=== PATIENT | female | born 1970 | race Caucasian/White ===

== ENCOUNTER 2016-07-28 22:57 | Emergency (ER) | payer SELFPAY ==
[2016-07-28] MEDS ORDERED: METOCLOPRAMIDE HCL INJ/PF 10 MG/2 ML SDV IV ONE (23:18)
[2016-07-28] MEDS ORDERED: FAMOTIDINE INJ/PF 20 MG/2 ML SDV IV ONE (23:18)
--- NOTE | 2016-07-28 23:19 | ER Document Report ---
ED GI/ - General Stated Complaint: VOMITING Time seen by provider: 23:18 Mode of Arrival: Stretcher Information source: Patient TRAVEL OUTSIDE OF THE [place] IN LAST 30 DAYS: No - HPI Patient complains to provider of: Abdominal pain, Vomiting Onset: This morning Timing/Duration: Sudden Quality of pain: Achy, Cramping Severity at maximum: Moderate Severity in ED: Moderate Pain Level: 3 Location: Epigastric Associated symptoms: Nausea, Vomiting Notes: 07/28/16 23:18 Patient is a 45-year-old female presenting to the emergency room via EMS for complaints of nausea and vomiting started this morning with crampy abdominal pain in the epigastric region, he denies any fever, no sick contacts, patient is actively retching at time of my evaluation but not actually vomiting - Related Data Allergies/Adverse Reactions: morphine Allergy (Verified 07/29/16 00:57) Penicillins Allergy (Verified 07/29/16 00:57) Past Medical History - General Information source: Patient - Social History Smoking Status: Unknown if Ever Smoked Family History: Reviewed & Not Pertinent Pulmonary Medical History: Reports: Hx Bronchitis Psychiatric Medical History: Reports: Hx Anxiety Past Surgical History: Reports: Hx Section, Hx Tonsillectomy - Immunizations Hx Diphtheria, Pertussis, Tetanus Vaccination: Yes Review of Systems - Review of Systems Constitutional: No symptoms reported EENT: No symptoms reported Cardiovascular: No symptoms reported Respiratory: No symptoms reported Gastrointestinal: See HPI Genitourinary: No symptoms reported Female Genitourinary: No symptoms reported Musculoskeletal: No symptoms reported Skin: No symptoms reported Hematologic/Lymphatic: No symptoms reported Neurological/Psychological: No symptoms reported -: Yes All other systems reviewed and negative Physical Exam - Vital signs Vitals: Temp Pulse Resp BP Pulse Ox 98.4 F 71 16 114/78 98 07/28/16 23:05 07/28/16 23:05 07/28/16 23:05 07/28/16 23:05 07/28/16 23:05 Interpretation: Normal - General General appearance: Appears well, Alert - HEENT Head: Normocephalic, Atraumatic Eyes: Normal Pupils: PERRL - Respiratory Respiratory status: No respiratory distress Chest status: Nontender Breath sounds: Normal Chest palpation: Normal - Cardiovascular Rhythm: Regular Heart sounds: Normal auscultation Murmur: No - Abdominal Inspection: Normal Distension: No distension Bowel sounds: Normal Tenderness: Tender - Epigastric Organomegaly: No organomegaly - Back Back: Normal, Nontender - Extremities General upper extremity: Normal inspection, Nontender, Normal color, Normal ROM , Normal temperature General lower extremity: Normal inspection, Nontender, Normal color, Normal ROM , Normal temperature, Normal weight bearing. No: Peace's sign - Neurological Neuro grossly intact: Yes Cognition: Normal Orientation: AAOx4 [place] Coma Scale Eye Opening: Spontaneous [place] Coma Scale Verbal: Oriented [place] Coma Scale Motor: Obeys Commands [place] Coma Scale Total: 15 Speech: Normal Motor strength normal: LUE, RUE, LLE, RLE Sensory: Normal - Psychological Associated symptoms: Normal affect, Normal mood - Skin Skin Temperature: Warm Skin Moisture: Dry Skin Color: Normal Course - Re-evaluation Re-evalutation: 07/29/16 04:45 Patient is resting comfortably, no longer vomiting, reports feeling some relief of symptoms, additional IV fluids have been ordered, I have asked patient to attempt a by mouth challenge but she states she is not quite ready to yet, we will try again and a little bit and hopefully have patient ready for discharge shortly 07/29/16 06:23 I inquired with patient as to whether she's had vomiting like this before and she said yes that she's been having vomiting like this for 40 years, I then asked her she was a cyclic vomiting her and she said yes, I asked what medications usually help she said a combination of Zofran and Phenergan which is early been given, I also given Reglan and Haldol and she continues to retch, however she has not actually vomited up any food or fluid in several hours, I asked the patient whether this was the worst she's ever been and she said no this is not quite that bad, and she would prefer to go home, however would like to feel little bit better before she does, therefore I've ordered a dose of Valium to see if this helps her feel better 07/29/16 06:24 Patient recently moved to the [place] area in 07/29/16 07:18 Patient has been resting comfortably, she has not retched or vomited in quite some time now, plan to discharge with a prescription for Phenergan and information for follow-up with a local memory care provider, patient acknowledges understanding and agreement with this plan - Vital Signs Vital signs: Temp Pulse Resp BP Pulse Ox 98.4 F 71 14 127/83 H 100 07/29/16 06:45 07/28/16 23:05 07/29/16 06:00 07/29/16 06:00 07/29/16 06:00 - Laboratory Result Diagrams: 07/29/16 00:15 07/29/16 00:15 Laboratory results interpreted by me: 07/29/16 07/29/16 00:15 00:15 WBC 19.1 H Absolute Neutrophils 14.2 H Glucose 117 H Lipase 549.5 H - Diagnostic Test Radiology reviewed: Image reviewed, Reports reviewed Discharge - Discharge Clinical Impression: Marijuana use Cyclic vomiting syndrome Qualifiers: Vomiting Intractability: intractable Nausea presence: with nausea Qualified Code(s): G43.A1 - Cyclical vomiting, intractable Condition: Stable Disposition: HOME, SELF-CARE Instructions: Family Physicians / Practices, Vomiting ([facility]), Nausea or Vomiting , Nonspecific ([facility]) Additional Instructions: Follow up with your primary care provider in one to 2 days. Return to the emergency room immediately if symptoms worsen or any additional concerns. Prescriptions: Ondansetron [Zofran Odt 4 mg Tablet] 1 - 2 tab PO Q4H #30 tab.rapdis Promethazine HCl [Phenergan 25 mg Tablet] 25 - 50 mg PO ASDIR PRN #30 tablet PRN Reason:
[2016-07-28] MEDS: NORMAL SALINE 1000 ML 1,000 ML IV PRN (23:30)
[2016-07-29 00:26] LABS: ABSOLUTE BASOPHILS # (AUTO) 0.2 10^3/uL (0.0-0.2); ABSOLUTE EOSINOPHILS # (AUTO) 0.3 10^3/uL (0.0-0.6); ABSOLUTE LYMPHOCYTES (AUTO) 3.4 10^3/uL (0.5-4.7); ABSOLUTE NEUT (AUTO) 14.2 10^3/uL (1.7-8.2); BASOPHILS % (AUTO) 0.9 % (0-2); EOSINOPHILS % (AUTO) 1.7 % (0-6); HEMOGLOBIN 13.3 g/dL (12.0-15.5); HGB HCT DIFFERENCE -0.1; LYMPHOCYTES % (AUTO) 17.6 % (13-45); MEAN CORPUSCULAR HEMOGLOBIN 32.3 pg (27.0-33.4); MEAN CORPUSCULAR HGB CONC 33.3 g/dL (32.0-36.0); MEAN CORPUSCULAR VOLUME 97 fl (80-97); MONOCYTES % (AUTO) 5.4 % (3-13); RED BLOOD COUNT 4.12 10^6/uL (3.72-5.28); RED CELL DISTRIBUTION WIDTH 13.4 % (11.5-14.0); SEGMENTED NEUTROPHILS % (AUTO) 74.4 % (42-78); WHITE BLOOD COUNT 19.1 10^3/uL (4.0-10.5)
[2016-07-29 01:02] LABS: ALANINE AMINOTRANSFERASE 28 U/L (9-52); ALBUMIN 4.2 g/dL (3.5-5.0); ALKALINE PHOSPHATASE 84 U/L (38-126); ANION GAP 11 (5-19); ASPARTATE AMINO TRANSFERASE 26 U/L (14-36); BILIRUBIN,TOTAL 0.4 mg/dL (0.2-1.3); BLOOD UREA NITROGEN 13 mg/dL (7-20); CALCIUM 9.5 mg/dL (8.4-10.2); CARBON DIOXIDE 22 mmol/L (22-30); CHLORIDE 107 mmol/L (98-107); CREATININE RESULT 0.87 mg/dL (0.52-1.25); GLUCOSE 117 mg/dL (75-110); LIPASE 549.5 U/L (23-300); POTASSIUM 4.2 mmol/L (3.6-5.0); SODIUM 139.6 mmol/L (137-145); TOTAL PROTEIN 6.9 g/dL (6.3-8.2)
[2016-07-29] MEDS ORDERED: ONDANSETRON HCL INJ/PF 4 MG/2 ML SDV IV ONE (01:04)
[2016-07-29] MEDS ORDERED: NORMAL SALINE 1000 ML 1,000 ML IV PRN ×2 (01:04→03:25)
[2016-07-29] MEDS: NORMAL SALINE 1000 ML 1,000 ML IV PRN (01:26)
[2016-07-29 01:29] LABS: APPEARANCE,URINE CLEAR; BILIRUBIN,URINE NEGATIVE (NEGATIVE); GLUCOSE, URINE NEGATIVE (NEGATIVE); KETONES,URINE NEGATIVE (NEGATIVE); LEUKOCYTE ESTERASE,URINE NEGATIVE (NEGATIVE); NITRITE,URINE NEGATIVE (NEGATIVE); PROTEIN,URINE NEGATIVE (NEGATIVE); URINE SPECIFIC GRAVITY 1.012; UROBILINOGEN,URINE NEGATIVE mg/dL (<2.0)
[2016-07-29] MEDS ORDERED: PROMETHAZINE HCL 25 MG TABLET PO ONE (03:25)
[2016-07-29 03:59] LABS: URINE BARBITURATES SCREEN NEGATIVE; URINE METHADONE SCREEN NEGATIVE; URINE OPIATES LOW NEGATIVE; URINE PHENCYCLIDINE SCREEN NEGATIVE
[2016-07-29] MEDS ORDERED: HALOPERIDOL LACTATE INJ 5 MG/1 ML VIAL IM ONE (05:18)
[2016-07-29] MEDS ORDERED: DIPHENHYDRAMINE HCL 50 MG/ML VIAL IV ONE (05:18)
[2016-07-29] MEDS ORDERED: DIAZEPAM INJ 10 MG/2 ML DISP.SYRIN IV ONE (06:23)
[2016-07-29 08:12] VITALS: BP 144/82
== END 2016-07-29 08:22 | disposition home or self-care (01) ==
LOC: ER 22:57
DX: G43.A1 Cyclical vomiting, in migraine, intractable (principal); F12.90 Cannabis use, unspecified, uncomplicated; R10.9 Unspecified abdominal pain
CPT/HCPCS: 99284; 96372; 96361; 96374; 96375; 36415; 83690; 85025; 80053; 81001; 80307; 87804; 74177; J3360; J1200; J1630; J2765; J2405; J7030 ×2; S0028

== ENCOUNTER 2017-06-09 12:56 | Emergency (ER) | payer SELFPAY ==
[2017-06-09] MEDS ORDERED: LIDOCAINE 2% VISCOUS SOLN 20 ML UDCUP PO ONE (14:02)
[2017-06-09] MEDS ORDERED: AMOXICILLIN TRIHYDRATE 500 MG CAPSULE PO ONE (14:02)
[2017-06-09] MEDS ORDERED: IBUPROFEN 600 MG TABLET PO ONE (14:02)
--- NOTE | 2017-06-09 14:10 | ER Document Report ---
ED Oral Problem - General Chief Complaint: Toothache Stated Complaint: FACIAL SWELLING/PAIN Time Seen by Provider: 06/09/17 13:25 Mode of Arrival: Ambulatory Information source: Patient Notes: 46-year-old female presents to ED for dental pain. States it started about a month ago and is continually getting worse. TRAVEL OUTSIDE OF THE [place] IN LAST 30 DAYS: No - HPI Patient complains to provider of: Toothache Onset: Other - month Onset: Gradual Quality of pain: Sharp, Throbbing Severity: Moderate Pain Level: 4 Associated symptoms: Facial pain, Toothache Worsened by: Cold - Related Data Allergies/Adverse Reactions: morphine Allergy (Verified 06/09/17 12:59) Past Medical History - General Information source: Patient - Social History Smoking Status: Current Every Day Smoker Cigarette use (# per day): Yes - 1/3 ppd Chew tobacco use (# tins/day): No Smoking Education Provided: Yes - less than 1 min Frequency of alcohol use: None Drug Abuse: Marijuana Occupation: none Lives with: Family Family History: Reviewed & Not Pertinent. denies: Arthritis, CAD, COPD, CVA, DM , Hyperlipidemia, Hypertension, Malignancy, Thyroid Disfunction Patient has suicidal ideation: No Patient has homicidal ideation: No Pulmonary Medical History: Reports: Hx Bronchitis EENT Medical History: Reports: None Neurological Medical History: Reports: None Endocrine Medical History: Reports: None Renal/ Medical History: Reports: None Malignancy Medical History: Reports: None GI Medical History: Reports: None Musculoskeltal Medical History: Reports None Skin Medical History: Reports None Psychiatric Medical History: Reports: Hx Anxiety Traumatic Medical History: Reports: None Infectious Medical History: Reports: None Past Surgical History: Reports: Hx Section, Hx Oral Surgery - wisdom teeth, Hx Tonsillectomy - Immunizations Hx Diphtheria, Pertussis, Tetanus Vaccination: Yes Review of Systems - Review of Systems Constitutional: Chills EENT: Dental problem Cardiovascular: No symptoms reported Respiratory: No symptoms reported Gastrointestinal: No symptoms reported Genitourinary: No symptoms reported Female Genitourinary: No symptoms reported Musculoskeletal: No symptoms reported Skin: No symptoms reported Hematologic/Lymphatic: No symptoms reported Neurological/Psychological: No symptoms reported -: Yes All other systems reviewed and negative Physical Exam - Vital signs Vitals: Temp Pulse Resp BP Pulse Ox 98.8 F 73 20 124/79 96 06/09/17 13:11 06/09/17 13:11 06/09/17 13:11 06/09/17 13:11 06/09/17 13:11 Interpretation: Normal - General General appearance: Appears well, Alert - HEENT Head: Normocephalic, Atraumatic Eyes: Normal Pupils: PERRL Ears: Normal External canal: Normal Tympanic membrane: Normal Sinus: Normal Nasal: Normal Mouth/Lips: Caries Mucous membranes: Normal Teeth diagram: 1 - Severe gingivitis multiple dental cavities. Poor dentation, states she does not brush her teeth because it hurts too much Pharynx: Post nasal drainage Neck: Normal - Respiratory Respiratory status: No respiratory distress Chest status: Nontender Breath sounds: Normal Chest palpation: Normal - Cardiovascular Rhythm: Regular Heart sounds: Normal auscultation Murmur: No - Abdominal Inspection: Normal Distension: No distension Bowel sounds: Normal Tenderness: Nontender Organomegaly: No organomegaly - Back Back: Normal, Nontender - Extremities General upper extremity: Normal inspection, Nontender, Normal color, Normal ROM , Normal temperature General lower extremity: Normal inspection, Nontender, Normal color, Normal ROM , Normal temperature, Normal weight bearing. No: Peace's sign - Neurological Neuro grossly intact: Yes Cognition: Normal Orientation: AAOx4 [place] Coma Scale Eye Opening: Spontaneous [place] Coma Scale Verbal: Oriented [place] Coma Scale Motor: Obeys Commands [place] Coma Scale Total: 15 Speech: Normal Motor strength normal: LUE, RUE, LLE, RLE Sensory: Normal - Psychological Associated symptoms: Normal affect, Normal mood - Skin Skin Temperature: Warm Skin Moisture: Dry Skin Color: Normal Course - Re-evaluation Re-evalutation: 06/09/17 14:19 Patient treated with amoxicillin, ibuprofen, and viscous lidocaine for her dental pain. Patient was given the name and number for dental clinic instructed to follow-up with the dentist to have her mouth treated. Patient was instructed that she needs to use some kind of sensitive toothpaste and brush her teeth on a regular basis. - Vital Signs Vital signs: Temp Pulse Resp BP Pulse Ox 98.8 F 73 20 124/79 96 06/09/17 13:11 06/09/17 13:11 06/09/17 13:11 06/09/17 13:11 06/09/17 13:11 Discharge - Discharge Clinical Impression: Pain due to dental caries Condition: Stable Disposition: HOME, SELF-CARE Instructions: Family Physicians / Practices Additional Instructions: TOOTHACHE: Your pain is due to dental decay. The tooth must be repaired in order for you to feel better. You will, therefore, be referred to a dentist. We do not have dentists on the staff at [facility]. Severe swelling or drainage around a tooth usually means a dental abscess. This also requires evaluation and treatment by the dentist, but antibiotics may be prescribed while awaiting dental treatment. You should be rechecked immediately if you develop major swelling of the face, increasing pain, a lump in the jaw or gums, headache, difficulty swallowing, or fever. Amoxicillin Amoxicillin is a member of the penicillin family. It covers the germs likely to cause ear, bronchial, and urinary infections better than plain penicillin. Amoxicillin can be taken without regard to meals. Nausea after taking the medication is rare, but can occur. Diarrhea can occur, particularly in small children. Vaginal yeast infections and oral thrush in infants are also common. Contact your physician if these problems occur. Allergy to penicillins is common. If you have had an allergic reaction to any drug of the penicillin family, you should never take any other penicillin. Notify your doctor at once if you develop hives, itching, swelling, faintness, or shortness of breath. Less serious side effects can include nausea or diarrhea. FOLLOW-UP CARE: You have been referred for follow-up care to the dentists listed below. Call the dentists office for an appointment as you were instructed or within the next two days. If you experience worsening or a significant change in your symptoms, notify the physician immediately or return to the Emergency Department at any time for re-evaluation. [facility] [address] [place], [place] [phone] Closed until June 28 for [facility] [address] [place] [address] [facility] [place] [address] [facility] [address] [facility] ([facility]) [facility] [address] [place] [facility] [place] [email or web address] [address] [place] [address] Wednesday- 8:00am to 5:00 pm Will see patients from other [facility]. Charges based on income and family size and accepts Medicare, Medicaid, and Insurances Will pull molars [facility] [id number] Hours of Operation 8:00 am - 4:30 pm weekdays The following dental offices accept Medicaid: [facility] Dr. Mendiola Dr. Estrella Dr. Tang Dr. Liu Jair Carlos Lutsavage, and [facility] Dr. Ramos ([place]) Dr. Marshall ([place]) [facility] Drs. Stallworth and Lobito ([place]) Dr. Landers ([place]) [facility] Dr. Schulz ([place]) Drs. Fox and ([place]) Medicaid Care Line Prescriptions: Amoxicillin 875 mg PO BID #14 tablet Forms: Smoking Cessation Education
[2017-06-09 14:32] VITALS: BP 130/83
== END 2017-06-09 14:32 | disposition home or self-care (01) ==
LOC: ER 12:56
DX: K02.9 Dental caries, unspecified (principal); K08.89 Other specified disorders of teeth and supporting structures; R68.83 Chills (without fever); F17.210 Nicotine dependence, cigarettes, uncomplicated; Z71.6 Tobacco abuse counseling
CPT/HCPCS: 99282; J3490

== ENCOUNTER 2018-12-26 20:06 | Emergency (ER) | payer SELFPAY ==
[2018-12-26] MEDS ORDERED: HALOPERIDOL LACTATE INJ 5 MG/1 ML VIAL IM ONE (21:00)
[2018-12-26] MEDS ORDERED: NORMAL SALINE 1000 ML 1,000 ML IV ONE ×2 (21:00→22:42)
--- NOTE | 2018-12-26 21:03 | ER Document Report ---
ED GI/ - General Chief Complaint: Abdominal Pain Stated Complaint: CRAMPING,NAUSEA,HEADACHES Time Seen by Provider: 12/26/18 20:53 Notes: Patient is a 48-year-old female that comes emergency department for chief complaint of abdominal pain, multiple episodes of vomiting, and chills since yesterday. Pain is over the left side of the abdomen, worst in the left upper abdomen. She denies vaginal bleeding or discharge. She states she has vomited over 15 times. She denies hematemesis, she reports a normal bowel movement within the past day. She does report a history of cyclic vomiting syndrome, she does admit to marijuana use today and daily, she denies recreational drugs otherwise. She smokes cigarettes. Past medical history otherwise is only C- sections reportedly. TRAVEL OUTSIDE OF THE [place] IN LAST 30 DAYS: No - Related Data Allergies/Adverse Reactions: morphine Allergy (Verified 12/26/18 20:11) Penicillins Allergy (Verified 12/26/18 20:11) Past Medical History - General Information source: Patient - Social History Smoking Status: Current Every Day Smoker Smoking Education Provided: Yes - <3 min Frequency of alcohol use: None Drug Abuse: Marijuana Lives with: Family Family History: Reviewed & Not Pertinent. denies: Arthritis, CAD, COPD, CVA, DM, Hyperlipidemia, Hypertension, Malignancy, Thyroid Disfunction Pulmonary Medical History: Reports: Hx Bronchitis Renal/ Medical History: Denies: Hx Peritoneal Dialysis Psychiatric Medical History: Reports: Hx Anxiety Past Surgical History: Reports: Hx Section, Hx Oral Surgery - wisdom teeth, Hx Tonsillectomy - Immunizations Hx Diphtheria, Pertussis, Tetanus Vaccination: Yes Review of Systems - Review of Systems Constitutional: See HPI EENT: No symptoms reported Cardiovascular: No symptoms reported Respiratory: No symptoms reported Gastrointestinal: See HPI Genitourinary: See HPI Female Genitourinary: No symptoms reported Musculoskeletal: No symptoms reported Skin: No symptoms reported Hematologic/Lymphatic: No symptoms reported Neurological/Psychological: No symptoms reported Physical Exam - Vital signs Vitals: Temp Pulse Resp BP Pulse Ox 98.6 F 72 22 H 151/90 H 97 12/26/18 20:14 12/26/18 20:14 12/26/18 20:14 12/26/18 20:14 12/26/18 20:14 - Notes Notes: GENERAL: Patient is disheveled HEAD: Normocephalic, atraumatic. EYES: Pupils equal, round, and reactive to light. Extraocular movements intact. ENT: Oral mucosa very dry, tongue midline. Oropharynx unremarkable. Airway patent. NECK: Full range of motion. Supple. Trachea midline. LUNGS: Clear to auscultation bilaterally, no wheezes, rales, or rhonchi. No respiratory distress. HEART: Regular rate and rhythm. No murmur ABDOMEN: Generalized abdominal tenderness, slightly worse in the upper abdomen, no specific guarding, no rigidity, no rebound tenderness. GENITOURINARY: Deferred EXTREMITIES: Moves all 4 extremities spontaneously. No edema, normal radial and dorsalis pedis pulses bilaterally. No cyanosis. BACK: no cervical, thoracic, lumbar midline tenderness. No saddle anesthesia, normal distal neurovascular exam. Moves all extremities in full range of motion. NEUROLOGICAL: Alert and oriented x3. Normal speech. Cranial nerves II through XII grossly intact. PSYCH: Talks rapidly, slightly anxious SKIN: Warm, dry, normal turgor. No rashes or lesions noted. Course - Re-evaluation Re-evalutation: Patient has dry mucous membranes, she has generalized abdominal tenderness, she appears somewhat disheveled. She states she has been vomiting for days. Patient given IM Haldol because of history of cyclic vomiting syndrome. She does admit to cannabis use within the past day and daily use. CBC shows leukocytosis as expected with vomiting. Chemistry is generally unremarkable. Urinalysis is actually unremarkable. Troponin negative. Urine drug screen only shows cannabis. Patient is still having some nausea but not vomiting after Haldol. Given Benadryl as well. Given IV fluids. Patient reevaluated again. She appears much improved. She is tolerating p.o. She states she feels much better and that she just wants to go home and sleep. I do have a low suspicion of acute abdomen based on her evaluation, I did discuss how cannabis can cause cyclic vomiting syndrome, discussed avoidance of this. Discussed medications at home, follow-up, and return precautions. Patient states understanding and agreement. - Vital Signs Vital signs: Temp Pulse Resp BP Pulse Ox 98.0 F 85 17 133/83 H 98 12/27/18 00:04 12/27/18 00:04 12/27/18 00:04 12/27/18 00:04 12/27/18 00:04 - Laboratory Result Diagrams: 12/26/18 21:55 12/26/18 21:55 Laboratory results interpreted by me: 12/26/18 12/26/18 12/26/18 21:55 21:55 21:55 WBC 18.5 H MCV 98 H RDW 14.2 H Seg Neutrophils % 79.1 H Lymphocytes % 11.9 L Absolute Neutrophils 14.6 H Chloride 108 H Urine Urobilinogen 2.0 H Discharge - Discharge Clinical Impression: Dehydration Vomiting Qualifiers: Vomiting type: unspecified Vomiting Intractability: non-intractable Nausea presence: with nausea Qualified Code(s): R11.2 - Nausea with vomiting, unspecified Abdominal pain Qualifiers: Abdominal location: generalized Qualified Code(s): R10.84 - Generalized abdominal pain Condition: Stable Disposition: HOME, SELF-CARE Additional Instructions: You have been started on rehydration for dehydration from suspected cyclic vomiting syndrome. You have been treated for this with intramuscular and IV medications, continue nausea medicine at home if needed, I recommend the Carafate and famotidine for your inflamed upper gastrointestinal tract as well. Start with clear fluids and bland food, slowly progress. Return if you worsen including return for uncontrolled vomiting, severe worsening pain, fever, or any other concerning or worsening symptoms. Prescriptions: Famotidine [Pepcid 20 mg Tablet] 20 mg PO BID #14 tablet Promethazine HCl [Phenergan 25 mg Tablet] 25 mg PO Q6H PRN #20 tablet PRN Reason: Sucralfate [Carafate 1 gm Tablet] 1 gm PO QID #20 tablet
[2018-12-26] MEDS ORDERED: DIPHENHYDRAMINE HCL 50 MG/ML VIAL IV ONE (22:04)
[2018-12-26 22:21] LABS: ABSOLUTE BASOPHILS # (AUTO) 0.1 10^3/uL (0.0-0.2); ABSOLUTE EOSINOPHILS # (AUTO) 0.3 10^3/uL (0.0-0.6); ABSOLUTE LYMPHOCYTES (AUTO) 2.2 10^3/uL (0.5-4.7); ABSOLUTE MONOCYTES (AUTO) 1.3 10^3/uL (0.1-1.4); ABSOLUTE NEUT (AUTO) 14.6 10^3/uL (1.7-8.2); BASOPHILS % (AUTO) 0.5 % (0-2); EOSINOPHILS % (AUTO) 1.5 % (0-6); HEMATOCRIT 37.3 % (36.0-47.0); HEMOGLOBIN 12.7 g/dL (12.0-15.5); LYMPHOCYTES % (AUTO) 11.9 % (13-45); MEAN CORPUSCULAR HEMOGLOBIN 33.4 pg (27.0-33.4); MEAN CORPUSCULAR VOLUME 98 fl (80-97); PLATELET COUNT 264 10^3/uL (150-450); RED CELL DISTRIBUTION WIDTH 14.2 % (11.5-14.0); SEGMENTED NEUTROPHILS % (AUTO) 79.1 % (42-78); TOTAL CELLS COUNTED % (AUTO) 100 %; WHITE BLOOD COUNT 18.5 10^3/uL (4.0-10.5)
[2018-12-26 22:25] LABS: APPEARANCE,URINE CLEAR; BILIRUBIN,URINE NEGATIVE (NEGATIVE); COLOR,URINE STRAW; GLUCOSE, URINE NEGATIVE (NEGATIVE); KETONES,URINE NEGATIVE (NEGATIVE); LEUKOCYTE ESTERASE,URINE NEGATIVE (NEGATIVE); NITRITE,URINE NEGATIVE (NEGATIVE); PROTEIN,URINE NEGATIVE (NEGATIVE)
[2018-12-26 22:26] LABS: URINE SPECIFIC GRAVITY 1.017
[2018-12-26 22:34] LABS: ALANINE AMINOTRANSFERASE 15 U/L (9-52); ALKALINE PHOSPHATASE 88 U/L (38-126); ANION GAP 8 (5-19); ASPARTATE AMINO TRANSFERASE 20 U/L (14-36); BILIRUBIN,DIRECT 0.2 mg/dL (0.0-0.4); BILIRUBIN,TOTAL 0.2 mg/dL (0.2-1.3); BLOOD UREA NITROGEN 14 mg/dL (7-20); CALCIUM 9.3 mg/dL (8.4-10.2); CARBON DIOXIDE 25 mmol/L (22-30); CHLORIDE 108 mmol/L (98-107); GLUCOSE 100 mg/dL (75-110); LIPASE 97.4 U/L (23-300); POTASSIUM 3.7 mmol/L (3.6-5.0); SODIUM 140.8 mmol/L (137-145); TOTAL PROTEIN 6.5 g/dL (6.3-8.2)
[2018-12-26 22:41] LABS: URINE AMPHETAMINES SCREEN NEGATIVE; URINE BARBITURATES SCREEN NEGATIVE; URINE BENZODIAZEPINES SCREEN NEGATIVE; URINE COCAINE SCREEN NEGATIVE; URINE MARIJUANA (THC) SCREEN UNCONFIRMED POSITIVE; URINE METHADONE SCREEN NEGATIVE; URINE PHENCYCLIDINE SCREEN NEGATIVE
[2018-12-26] MEDS ORDERED: HYDROCODONE/ACETAMINOPHEN 5-325 MG (6 TAB/ER DISP) PO PRN (23:18)
[2018-12-26] MEDS ORDERED: ONDANSETRON ODT 4 MG TAB (6 TAB/ER DISP) PO PRN (23:18)
[2018-12-27 00:05] VITALS: BP 133/83
--- NOTE | 2018-12-27 11:24 | EKG REPORT ---
SEVERITY:- ABNORMAL ECG - SINUS RHYTHM ABNRM R PROG, CONSIDER ASMI OR LEAD PLACEMENT : Confirmed by: Candie Erickson MD 27-Dec-2018 11:22:43
== END 2018-12-27 00:05 | disposition home or self-care (01) ==
LOC: ER 20:06
DX: R11.2 Nausea with vomiting, unspecified (principal); R10.84 Generalized abdominal pain; R10.817 Generalized abdominal tenderness; E86.0 Dehydration; R68.83 Chills (without fever); F12.10 Cannabis abuse, uncomplicated; F17.210 Nicotine dependence, cigarettes, uncomplicated; Z88.5 Allergy status to narcotic agent; Z88.0 Allergy status to penicillin; D72.829 Elevated white blood cell count, unspecified; Z86.69 Personal history of other diseases of the nervous system and sense organs
CPT/HCPCS: 93005; 99284; 96372; 96361; 96374; 36415; 83690; 84703; 85025; 80053; 81001; 84484; 80307; 93010; J1200; J1630; J7030

== ENCOUNTER 2019-04-13 11:25 | Emergency (ER) | payer SELFPAY ==
--- NOTE | 2019-04-13 12:03 | ER Document Report ---
ED Medical Screen (RME) - General Chief Complaint: Chest Pain Stated Complaint: HEART PALPITATIONS Time Seen by Provider: 04/13/19 11:56 Mode of Arrival: Wheelchair Information source: Patient Notes: Patient is an otherwise healthy 40-year-old female presenting to the emergency department chief complaint of shortness of breath and heart palpitations. Patient reports heart palpitations have been going on for 4 years but getting worse over the last few months. Patient denies seeing a barrel straightener, denies any history of thyroid issues. Patient denies any chest pain. She reports nausea but states that she has a history of cyclic vomiting syndrome. Lung sounds are clear and equal bilaterally. I have greeted and performed a rapid initial assessment of this patient. A comprehensive ED assessment and evaluation of the patient, analysis of test results and completion of the medical decision making process will be conducted by additional ED providers. I have specifically instructed the patient or family members with the patient to immediately return to any nursing staff should anything change in the patient's condition or with their chief complaint. This medical record was dictated with voice recognizing software. There may be grammatical, syntax errors that are unintended. TRAVEL OUTSIDE OF THE [place] IN LAST 30 DAYS: No - Related Data Allergies/Adverse Reactions: morphine Allergy (Verified 04/13/19 11:51) Penicillins Allergy (Verified 04/13/19 11:51) Past Medical History - Social History Chew tobacco use (# tins/day): No Frequency of alcohol use: None Drug Abuse: Marijuana Pulmonary Medical History: Reports: Hx Bronchitis Renal/ Medical History: Denies: Hx Peritoneal Dialysis Psychiatric Medical History: Reports: Hx Anxiety Past Surgical History: Reports: Hx Section, Hx Oral Surgery - wisdom teeth, Hx Tonsillectomy - Immunizations Hx Diphtheria, Pertussis, Tetanus Vaccination: Yes Physical Exam - Vital signs Vitals: Temp Pulse Resp BP Pulse Ox 97.5 F 72 18 112/64 100 04/13/19 11:38 04/13/19 11:38 04/13/19 11:38 04/13/19 11:38 04/13/19 11:38 Course - Vital Signs Vital signs: Temp Pulse Resp BP Pulse Ox 97.5 F 72 18 112/64 100 04/13/19 11:38 04/13/19 11:38 04/13/19 11:38 04/13/19 11:38 04/13/19 11:38
[2019-04-13 12:40] LABS: ABSOLUTE BASOPHILS # (AUTO) 0.1 10^3/uL (0.0-0.2); ABSOLUTE EOSINOPHILS # (AUTO) 0.3 10^3/uL (0.0-0.6); ABSOLUTE LYMPHOCYTES (AUTO) 3.7 10^3/uL (0.5-4.7); ABSOLUTE MONOCYTES (AUTO) 0.7 10^3/uL (0.1-1.4); ABSOLUTE NEUT (AUTO) 4.6 10^3/uL (1.7-8.2); BASOPHILS % (AUTO) 1.1 % (0-2); EOSINOPHILS % (AUTO) 2.7 % (0-6); HEMATOCRIT 45.2 % (36.0-47.0); HEMOGLOBIN 15.3 g/dL (12.0-15.5); LYMPHOCYTES % (AUTO) 39.2 % (13-45); MEAN CORPUSCULAR HEMOGLOBIN 32.9 pg (27.0-33.4); MEAN CORPUSCULAR VOLUME 97 fl (80-97); MONOCYTES % (AUTO) 7.3 % (3-13); PLATELET COUNT 312 10^3/uL (150-450); RED BLOOD COUNT 4.66 10^6/uL (3.72-5.28); RED CELL DISTRIBUTION WIDTH 13.6 % (11.5-14.0); SEGMENTED NEUTROPHILS % (AUTO) 49.7 % (42-78); TOTAL CELLS COUNTED % (AUTO) 100 %; WHITE BLOOD COUNT 9.4 10^3/uL (4.0-10.5)
--- NOTE | 2019-04-13 12:50 | RADIOLOGY REPORT (SQ) ---
EXAM DESCRIPTION: CHEST 2 VIEWS COMPLETED DATE/TIME: 04/13/2019 12:33 pm REASON FOR STUDY: palpitations/shortness of breath COMPARISON: None. EXAM PARAMETERS: NUMBER OF VIEWS: two views TECHNIQUE: Digital Frontal and Lateral radiographic views of the chest acquired. RADIATION DOSE: NA LIMITATIONS: none FINDINGS: LUNGS AND PLEURA: Pruning of the vasculature in the upper zones and increased AP diameter on the lateral view; these findings are suggestive of COPD. There is no superimposed consolidation, pleural effusion or pneumothorax. MEDIASTINUM AND HILAR STRUCTURES: No mediastinal or hilar contour abnormality. HEART AND VASCULAR STRUCTURES: No cardiomegaly. BONES: No acute findings. HARDWARE: None. OTHER: No other finding. IMPRESSION: Findings of COPD without a superimposed acute cardiopulmonary process. TECHNICAL DOCUMENTATION: JOB ID: [id number] [employer]- All Rights Reserved Reading location - IP/workstation name: [email or web address]
[2019-04-13 13:00] LABS: ALBUMIN 4.5 g/dL (3.5-5.0); ALKALINE PHOSPHATASE 87 U/L (38-126); ANION GAP 11 (5-19); ASPARTATE AMINO TRANSFERASE 26 U/L (14-36); BILIRUBIN,DIRECT 0.2 mg/dL (0.0-0.4); BILIRUBIN,TOTAL 0.3 mg/dL (0.2-1.3); BLOOD UREA NITROGEN 20 mg/dL (7-20); CALCIUM 10.1 mg/dL (8.4-10.2); CARBON DIOXIDE 27 mmol/L (22-30); CHLORIDE 104 mmol/L (98-107); GLUCOSE 81 mg/dL (75-110); POTASSIUM 4.4 mmol/L (3.6-5.0); TOTAL PROTEIN 7.7 g/dL (6.3-8.2)
--- NOTE | 2019-04-13 15:33 | ER Document Report ---
ED General - General Chief Complaint: Palpitations Stated Complaint: HEART PALPITATIONS Time Seen by Provider: 04/13/19 11:56 Primary Care Provider: LOLLY JAIME DO [NO LOCAL MD] - Follow up in 3-5 days (primary care. ) Mode of Arrival: Wheelchair Notes: Patient is a 48-year-old female with history of cyclic vomiting syndrome that presents to the emergency department for chief complaint of palpitations and shortness of breath. Patient states that she had episode of cyclic vomiting over the weekend, she states she typically takes Zofran and Phenergan, but was feeling more palpitations today she is worried that the medication she takes for this cyclic vomiting have been causing issues for her over the many years she is been taking them so she decided come to the emergency department. She has had some chest tightness associated with this, she thinks she may have asthma as well, but does not have an inhaler or any medications for it. She is rather anxious, states she does not have a primary care physician to follow-up on these issues. She does smoke cigarettes on a daily basis. Past Medical History: Cyclic vomiting syndrome, peptic ulcer disease, asthma Past Surgical History: Social History: Admits to smoking cigarettes, denies alcohol or drug use. Family History: Reviewed and noncontributory for presenting illness Allergies: Reviewed, see documented allergy list. REVIEW OF SYSTEMS: Other than noted above, the 12 point review of systems was reviewed with the patient and were negative, all pertinent findings are included in the HPI. PHYSICAL EXAMINATION: Vital signs reviewed, nursing noted reviewed. GENERAL: Patient appears mildly anxious, but in no acute or immediate distress. HEAD: Atraumatic, normocephalic. EYES: Eyes appear normal, extraocular movements intact, sclera anicteric, conjunctiva are normal. ENT: nares patent, oropharynx clear without exudates. Moist mucous membranes. NECK: Normal range of motion, supple without lymphadenopathy LUNGS: Slight expiratory wheezing noted throughout all lung orozco. No acute respiratory distress HEART: Regular rate and rhythm without murmurs ABDOMEN: Soft, nontender, normoactive bowel sounds. No rebound, guarding, or rigidity. No masses appreciated. EXTREMITIES: Nontender, good range of motion, no pitting or edema. NEUROLOGICAL: No focal neurological deficits. Moves all extremities spontaneously Motor and sensory grossly intact on exam. PSYCH: Flat affect, appears anxious, but otherwise answers questions appropriately. SKIN: Warm, Dry, normal turgor, no rashes or lesions noted on exposed skin TRAVEL OUTSIDE OF THE [place] IN LAST 30 DAYS: No - Related Data Allergies/Adverse Reactions: morphine Allergy (Verified 04/13/19 11:51) Penicillins Allergy (Verified 04/13/19 11:51) Past Medical History - General Information source: Patient - Social History Smoking Status: Current Some Day Smoker Chew tobacco use (# tins/day): No Frequency of alcohol use: None Drug Abuse: Marijuana Family History: Reviewed & Not Pertinent. denies: Arthritis, CAD, COPD, CVA, DM, Hyperlipidemia, Hypertension, Malignancy, Thyroid Disfunction Patient has suicidal ideation: No Patient has homicidal ideation: No Pulmonary Medical History: Reports: Hx Bronchitis Renal/ Medical History: Denies: Hx Peritoneal Dialysis Psychiatric Medical History: Reports: Hx Anxiety Past Surgical History: Reports: Hx Section, Hx Oral Surgery - wisdom teeth, Hx Tonsillectomy - Immunizations Hx Diphtheria, Pertussis, Tetanus Vaccination: Yes Physical Exam - Vital signs Vitals: Temp Pulse Resp BP Pulse Ox 97.5 F 72 18 112/64 100 04/13/19 11:38 04/13/19 11:38 04/13/19 11:38 04/13/19 11:38 04/13/19 11:38 Course - Re-evaluation Re-evalutation: Patient seen and examined vital signs reviewed. Laboratory data and/or imaging were ordered as appropriate for the patient's presenting symptoms and complaint, with consideration of any critical or life threatening conditions that may be associated with their obtained history and exam as noted above. Patient was treated with IV fluids, and given a DuoNeb breathing treatment Results were reviewed when available and demonstrated unremarkable work-up, negative troponin, EKG was normal, no evidence of ischemia, chest x-ray negative as well other than signs of chronic lung changes, which may reflect COPD given patient's history of smoking. The patient was re-evaluated and was improved particularly after getting a breathing treatment, she states that she was feeling much better and her shortness of breath was resolved. Evaluation was most consistent with shortness of breath, likely related to bronchospasm, patient given albuterol inhaler, and advised follow-up with a primary care she is given a list to follow-up with. Results were discussed with the patient at this point, after careful consideration I feel that that patient can be discharged from the emergency department, the patient was educated treatments and reasons to return to the emergency department based on their presumed diagnosis as noted above, they were advised to followup with a primary care physician in 2-3 days. Patient was agreeable to plan of care. *Note is created using voice recognition software and may contain spelling, syntax or grammatical errors. Laboratory 04/13/19 04/13/19 04/13/19 12:11 12:11 12:11 WBC 9.4 RBC 4.66 Hgb 15.3 Hct 45.2 MCV 97 MCH 32.9 MCHC 34.0 RDW 13.6 Plt Count 312 Lymph % (Auto) 39.2 Kendall % (Auto) 7.3 Eos % (Auto) 2.7 Baso % (Auto) 1.1 Absolute Neuts (auto) 4.6 Absolute Lymphs (auto) 3.7 Absolute Monos (auto) 0.7 Absolute Eos (auto) 0.3 Absolute Basos (auto) 0.1 Seg Neutrophils % 49.7 Sodium 142.1 Potassium 4.4 Chloride 104 Carbon Dioxide 27 Anion Gap 11 BUN 20 Creatinine 0.86 Est GFR ( Amer) > 60 Est GFR (MDRD) Non-Af > 60 Glucose 81 Calcium 10.1 Total Bilirubin 0.3 Direct Bilirubin 0.2 Neonat Total Bilirubin Not Reportable Neonat Direct Bilirubin Not Reportable Neonat Indirect Bili Not Reportable AST 26 ALT 17 Alkaline Phosphatase 87 Troponin I Total Protein 7.7 Albumin 4.5 TSH 0.50 Free T4 04/13/19 04/13/19 12:11 12:11 WBC RBC Hgb Hct MCV MCH MCHC RDW Plt Count Lymph % (Auto) Kendall % (Auto) Eos % (Auto) Baso % (Auto) Absolute Neuts (auto) Absolute Lymphs (auto) Absolute Monos (auto) Absolute Eos (auto) Absolute Basos (auto) Seg Neutrophils % Sodium Potassium Chloride Carbon Dioxide Anion Gap BUN Creatinine Est GFR ( Amer) Est GFR (MDRD) Non-Af Glucose Calcium Total Bilirubin Direct Bilirubin Neonat Total Bilirubin Neonat Direct Bilirubin Neonat Indirect Bili AST ALT Alkaline Phosphatase Troponin I 0.028 Total Protein Albumin TSH Free T4 1.39 Chest X-Ray 04/13/19 12:00 IMPRESSION: Findings of COPD without a superimposed acute cardiopulmonary process. - Vital Signs Vital signs: Temp Pulse Resp BP Pulse Ox 97.8 F 75 16 100/67 100 04/13/19 18:10 04/13/19 18:10 04/13/19 18:10 04/13/19 18:10 04/13/19 18:10 - Laboratory Result Diagrams: 04/13/19 12:11 04/13/19 12:11 - EKG Interpretation by Me Additional EKG results interpreted by me: EKG demonstrates sinus rhythm with a ventricular rate of 74 bpm, normal axis, normal intervals, no evidence of acute ischemia on this EKG. Discharge - Discharge Clinical Impression: Palpitations Condition: Stable Disposition: HOME, SELF-CARE Instructions: Asthma (OM), Palpitations (Irregular or Rapid Heartrate) (OM) Prescriptions: Albuterol Sulfate [Ventolin 0.083% Neb 2.5 mg/3 mL Ampul] 1 vial NEB Q4 PRN #100 vial PRN Reason: wheezing/shortness of breath Referrals: LOLLY JAIME DO [NO LOCAL MD] - Follow up in 3-5 days (primary care. )
[2019-04-13] MEDS ORDERED: IPRATROPIUM/ALBUTEROL 0.5-2.5 MG/3 ML AMPUL NEB ONE (16:01)
[2019-04-13] MEDS ORDERED: ALBUTEROL SULFATE HFA (90 MCG/PUFF) 8 GM MDI (1 MDI/ER DISP) IH ONE (18:00)
[2019-04-13 18:14] VITALS: BP 100/67
--- NOTE | 2019-04-13 20:18 | EKG REPORT ---
SEVERITY:- NORMAL ECG - SINUS RHYTHM : Confirmed by: Candie Erickson MD 13-Apr-2019 20:17:03
== END 2019-04-13 18:14 | disposition home or self-care (01) ==
LOC: ER 11:25
DX: R00.2 Palpitations (principal); J44.9 Chronic obstructive pulmonary disease, unspecified; R06.02 Shortness of breath; R11.15 Cyclical vomiting syndrome unrelated to migraine; Z79.899 Other long term (current) drug therapy; R07.89 Other chest pain; F17.210 Nicotine dependence, cigarettes, uncomplicated; F12.10 Cannabis abuse, uncomplicated; Z88.5 Allergy status to narcotic agent; Z88.0 Allergy status to penicillin
CPT/HCPCS: 93005; 36415; 84439; 84443; 85025; 80053; 84484; 71046; 93010; J3490; J7620

== ENCOUNTER 2019-06-09 00:25 | Emergency (ER) | payer SELFPAY ==
[2019-06-09 02:13] LABS: ABSOLUTE BASOPHILS # (AUTO) 0.1 10^3/uL (0.0-0.2); ABSOLUTE EOSINOPHILS # (AUTO) 0.2 10^3/uL (0.0-0.6); ABSOLUTE LYMPHOCYTES (AUTO) 1.6 10^3/uL (0.5-4.7); ABSOLUTE MONOCYTES (AUTO) 0.9 10^3/uL (0.1-1.4); ABSOLUTE NEUT (AUTO) 9.7 10^3/uL (1.7-8.2); BASOPHILS % (AUTO) 0.6 % (0-2); EOSINOPHILS % (AUTO) 1.8 % (0-6); HEMATOCRIT 36.6 % (36.0-47.0); HEMOGLOBIN 12.5 g/dL (12.0-15.5); LYMPHOCYTES % (AUTO) 12.8 % (13-45); MEAN CORPUSCULAR HEMOGLOBIN 32.7 pg (27.0-33.4); MEAN CORPUSCULAR HGB CONC 34.3 g/dL (32.0-36.0); MEAN CORPUSCULAR VOLUME 95 fl (80-97); MONOCYTES % (AUTO) 7.4 % (3-13); PLATELET COUNT 349 10^3/uL (150-450); RED BLOOD COUNT 3.84 10^6/uL (3.72-5.28); RED CELL DISTRIBUTION WIDTH 12.9 % (11.5-14.0); SEGMENTED NEUTROPHILS % (AUTO) 77.4 % (42-78); TOTAL CELLS COUNTED % (AUTO) 100 %; WHITE BLOOD COUNT 12.6 10^3/uL (4.0-10.5)
[2019-06-09 02:17] LABS: APPEARANCE,URINE SLIGHTLY-CLOUDY; BILIRUBIN,URINE NEGATIVE (NEGATIVE); COLOR,URINE YELLOW; GLUCOSE, URINE NEGATIVE (NEGATIVE); KETONES,URINE NEGATIVE (NEGATIVE); LEUKOCYTE ESTERASE,URINE NEGATIVE (NEGATIVE); NITRITE,URINE NEGATIVE (NEGATIVE); PROTEIN,URINE NEGATIVE (NEGATIVE); URINE SPECIFIC GRAVITY 1.019; UROBILINOGEN,URINE NEGATIVE mg/dL (<2.0)
[2019-06-09 02:28] LABS: ALKALINE PHOSPHATASE 85 U/L (38-126); ANION GAP 8 (5-19); ASPARTATE AMINO TRANSFERASE 17 U/L (14-36); BILIRUBIN,DIRECT 0.1 mg/dL (0.0-0.4); BILIRUBIN,TOTAL 0.2 mg/dL (0.2-1.3); BLOOD UREA NITROGEN 10 mg/dL (7-20); CALCIUM 7.6 mg/dL (8.4-10.2); CARBON DIOXIDE 20 mmol/L (22-30); CHLORIDE 113 mmol/L (98-107); GLUCOSE 94 mg/dL (75-110); POTASSIUM 3.4 mmol/L (3.6-5.0); TOTAL PROTEIN 6.1 g/dL (6.3-8.2)
[2019-06-09] MEDS ORDERED: FENTANYL CITRATE INJ/PF 100 MCG/2 ML AMPUL IV ONE ×2 (06:08→08:13)
[2019-06-09] MEDS ORDERED: ONDANSETRON HCL INJ/PF 4 MG/2 ML SDV IV ONE (06:08)
[2019-06-09] MEDS ORDERED: NORMAL SALINE 1000 ML 1,000 ML IV ONE (06:09)
--- NOTE | 2019-06-09 07:24 | ER Document Report ---
ED General - General TRAVEL OUTSIDE OF THE [place] IN LAST 30 DAYS: No <SARAH WILLIAMSON - Last Filed: 06/09/19 08:44> <PATTI CHANG - Last Filed: 06/09/19 09:04> - General Chief Complaint: Flank Pain Stated Complaint: LEFT SIDED FLANK PAIN Time Seen by Provider: 06/09/19 06:05 Primary Care Provider: BOLA WHEAT MD [ACTIVE STAFF] - Follow up in 3-5 days JANICE BROWN MD [ACTIVE STAFF] - Follow up in 3-5 days Notes: 48-year-old female presents with left flank pain that started over 24 hours ago with associated nausea/vomiting. Patient states that movement makes the pain worse and nothing really makes the pain better. Patient has associated goins bjective fevers. Patient was given Toradol and Zofran by EMS which slightly relieved her pain and nausea. Patient denies any history of kidney stones. Patient denies any associated chills, diarrhea, constipation, abdominal pain, chest pain, shortness of breath, or urinary symptoms. (SARAH WILLIAMSON) - Related Data Allergies/Adverse Reactions: morphine Allergy (Verified 04/13/19 11:51) Penicillins Allergy (Verified 04/13/19 11:51) Past Medical History - Social History Smoking Status: Current Every Day Smoker Frequency of alcohol use: None Drug Abuse: None Family History: Reviewed & Not Pertinent. denies: Arthritis, CAD, COPD, CVA, DM, Hyperlipidemia, Hypertension, Malignancy, Thyroid Disfunction Patient has suicidal ideation: No Patient has homicidal ideation: No Pulmonary Medical History: Reports: Hx Bronchitis Renal/ Medical History: Denies: Hx Peritoneal Dialysis Psychiatric Medical History: Reports: Hx Anxiety Past Surgical History: Reports: Hx Section, Hx Oral Surgery - wisdom teeth, Hx Tonsillectomy - Immunizations Hx Diphtheria, Pertussis, Tetanus Vaccination: Yes <SARAH WILLIAMSON - Last Filed: 06/09/19 08:44> Review of Systems <SARAH WILLIAMSON - Last Filed: 06/09/19 08:44> - Review of Systems Notes: Constitutional: Negative for fever. HENT: Negative for sore throat. Eyes: Negative for visual changes. Cardiovascular: Negative for chest pain. Respiratory: Negative for shortness of breath. Gastrointestinal: Positive for flank pain and nausea and vomiting. Negative for abdominal pain or diarrhea. Genitourinary: Negative for dysuria. Musculoskeletal: Negative for back pain. Skin: Negative for rash. Neurological: Negative for headaches, weakness or numbness. 10 point ROS negative except as marked above and in HPI. (SARAH WILLIAMSON) Physical Exam <SARAH WILLIAMSON - Last Filed: 06/09/19 08:44> - Vital signs Vitals: Temp Pulse Resp BP Pulse Ox 98.9 F 90 20 102/59 L 96 06/09/19 00:42 06/09/19 00:42 06/09/19 00:42 06/09/19 00:42 06/09/19 00:42 - Notes Notes: GENERAL: Well-appearing, well-nourished and uncomfortable, tearful. HEAD: Atraumatic, normocephalic. EYES: Extraocular movements intact, sclera anicteric, conjunctiva are normal. NECK: Normal range of motion, supple without lymphadenopathy or JVD. LUNGS: Breath sounds clear to auscultation bilaterally and equal. No wheezes rales or rhonchi. HEART: Regular rate and rhythm without murmurs, rubs or gallops. ABDOMEN: Soft, nontender, left CVA tenderness. No guarding, no rebound. No masses appreciated. EXTREMITIES: Normal range of motion, no pitting or edema. No clubbing or cyanosis. NEUROLOGICAL: Cranial nerves II through XII grossly intact. Normal speech, normal gait. PSYCH: Normal mood, normal affect. SKIN: Warm, Dry, normal turgor, no rashes or lesions noted. (SARAH WILLIAMSON) Course - Laboratory Result Diagrams: 06/09/19 01:50 06/09/19 01:50 <SARAH WILLIAMSON - Last Filed: 06/09/19 08:44> - Laboratory Result Diagrams: 06/09/19 01:50 06/09/19 01:50 <PATTI CHANG - Last Filed: 06/09/19 09:04> - Re-evaluation Re-evalutation: 06/09/19 48-year-old female presents with left flank pain with nausea/vomiting. No associated urinary symptoms. Patient is uncomfortable/tearful. Patient's abdomen exam is soft nontender. Patient does have left CVA tenderness. No history of kidney stones. Lab work is significant for mildly elevated white blood count at 12.6, potassium of 3.4, and lipase of 708 however there is no epigastric pain. Urine is completely negative. CT abdomen/pelvis with IV contrast ordered. 06/09/19 07:58 CT abdomen shows multifocal pneumonia vs cancer. Discussed with Dr. Muniz, attending, who recommended admission with IV antibiotics. Discussed these results with pt. Also gave pt a copy of the report. 06/09/19 08:25 Discussed with [employer]PUTY DIRECTOR Giovanna who will come down to see pt for consultation (d/c vs admission). Discussed this with pt who states she would rather go home. However pt continues to appear uncomfortable and O2 sats are 92- 93%. Fentanyl ordered. RN also states pt is unable to ambulate due to discomfort. 06/09/19 08:44 (SARAH WILLIAMSON) 06/09/19 09:03 Hospitalist Giovanna Jamison, [facility], came and evaluated patient. They feel that the patient is stable for discharge home and trial on p.o. antibiotics. (PATTI CHANG) - Vital Signs Vital signs: Temp Pulse Resp BP Pulse Ox 99.8 F 102 H 18 131/84 H 92 06/09/19 07:54 06/09/19 07:54 06/09/19 07:54 06/09/19 07:54 06/09/19 07:54 - Laboratory Laboratory results interpreted by me: 06/09/19 06/09/19 01:50 01:50 WBC 12.6 H Lymph % (Auto) 12.8 L Absolute Neuts (auto) 9.7 H Potassium 3.4 L Chloride 113 H Carbon Dioxide 20 L Calcium 7.6 L Total Protein 6.1 L Albumin 3.0 L Lipase 708.5 H Discharge <SARAH WILLIAMSON - Last Filed: 06/09/19 08:44> <PATTI CHANG - Last Filed: 06/09/19 09:04> - Discharge Clinical Impression: Multifocal pneumonia Condition: Stable Disposition: HOME, SELF-CARE Additional Instructions: Your CT scan shows a possible multifocal pneumonia versus cancer. Please take antibiotics as prescribed and finish all doses even if you feel better. Please follow-up with oncologist Dr. Wheat in 3 to 5 days. Please follow-up with your primary care doctor or PCP listed in 3 to 5 days. Return to ER for any wo rsening symptoms, including shortness of breath, increasing pain, coughing up blood, chest pain, fever, or any other symptoms that are concerning to you. Prescriptions: Doxycycline Hyclate 100 mg PO BID #14 capsule Albuterol Sulfate [Ventolin 0.083% Neb 2.5 mg/3 mL Ampul] 1 vial NEB Q4 #30 vial Azithromycin [Zithromax 250 mg Tablet] 250 mg PO ASDIR PRN #6 tablet PRN Reason: Forms: Return to Work Referrals: BOLA WHEAT MD [ACTIVE STAFF] - Follow up in 3-5 days JANICE BROWN MD [ACTIVE STAFF] - Follow up in 3-5 days
--- NOTE | 2019-06-09 07:46 | RADIOLOGY REPORT (SQ) ---
EXAM DESCRIPTION: CT ABDOMEN PELVIS WITH IV CONTRAST COMPLETED DATE/TME: 06/09/2019 06:07 CLINICAL HISTORY: 48 years, Female, left flank pain, n/v. HCG NEG COMPARISON: 07/29/2016 TECHNIQUE: Axial CT images images of the abdomen and pelvis were obtained after the administration of IV contrast. Sagittal and coronal reformats were performed. DLP 685 Images stored on PACS. All CT scanners at this facility use dose modulation, iterative reconstruction, and/or weight based dosing when appropriate to reduce radiation dose to as low as reasonably achievable (ALARA). [facility]: Dose Right [facility]: CareDose [facility]: Dose Right [facility]: Teradose 4D [facility]: [employer] LIMITATIONS: None. FINDINGS: There is a 1.2 cm peripheral airspace opacity along the left upper lobe. There is a 9 mm rounded consolidation within the left lower lobe adjacent to the major fissure. There is a 3.1 x 2.3 cm consolidation with central necrosis involving the base of the left lower lobe. There is centrilobular emphysema. The liver, gallbladder, pancreas, spleen, and adrenal glands are unremarkable. Both kidneys enhance normally. There is no hydronephrosis. There is no intraperitoneal free air or fluid. There is no lymphadenopathy. The stomach and small bowel, and appendix appear unremarkable. There is a moderate amount of stool within the colon. The uterus, adnexa, and urinary bladder unremarkable. No lytic or blastic bone lesion. IMPRESSION: Multifocal rounded consolidations within the left lung with the largest one in the left lower lobe demonstrating central necrosis. This may be due to multifocal and necrotizing pneumonia or possibly metastatic disease. Recommend follow-up CT scan in three months to assess for stability. No acute findings within the abdomen or pelvis. TECHNICAL DOCUMENTATION: Quality ID # [id number]: Final reports with documentation of one or more dose reduction techniques (e.g., Automated exposure control, adjustment of the mA and/or kV according to patient size, use of iterative reconstruction technique) copyright 2011 [facility]- All Rights Reserved
[2019-06-09] MEDS ORDERED: CEFTRIAXONE INJ 1000 MG VIAL IV ONE (07:56)
[2019-06-09] MEDS ORDERED: AZITHROMYCIN INJ 500 MG VIAL IV ONE (07:56)
[2019-06-09] MEDS ORDERED: ACETAMINOPHEN 325 MG TABLET PO ONE (08:14)
--- NOTE | 2019-06-09 09:18 | PDOC CONSULTATION ---
Consultation Consult Date: 06/09/19 Provider Consulted: JESSENIA GUY History of Present Illness Patient complains of: Left flank pain History of Present Illness: CELSO DAY is a 48 year old female with a past medical history of chronic bronchitis, tobacco dependence with continuous use, and marijuana use who presented to the emergency department today with a complaint of 2 days of sudden onset left flank pain, subjective fevers, malaise, and nausea. Evaluation in the emergency department revealed stable vital signs; heart rate 102, blood pressure 131/84, respirations 18, 92 to 96% on room air, with a low- grade temp of 99.8. Laboratory evaluation showed mild leukocytosis of 12.6, unremarkable chemistry other than a lipase of 708, normal urinalysis, and CT of the abdomen and pelvis which fortunately captured the majority of the patient's lung orozco demonstrating a left-sided multifocal pneumonia. Of note, the patient's gallbladder, pancreas, spleen, liver, and kidneys were unremarkable. The hospitalist service was consulted for evaluation prior to patient's discharge. Upon assessment of the patient, she had just received fentanyl and so was slightly drowsy and briefly required supplemental oxygen to maintain saturations but had returned to room air prior to the end of our discussion. Patient reports multiple life stressors, but otherwise has been in her normal state of health until just 2 days ago. Discussed the patient's images and recommendations that she completed course of antibiotic therapy and then follow- up with hematology/oncology for further evaluation to determine whether or not work-up for underlying malignancy remains warranted. Patient was satisfied with my recommendations and desires to be discharged home. She is advised to discontinue smoking, continue using her nebulizer for management of symptoms, complete full course of antibiotics, and to return to the emergency department for any new or worsening symptoms. Past Medical History Cardiac Medical History: Reports: None Pulmonary Medical History: Reports: Bronchitis EENT Medical History: Reports: None Neurological Medical History: Reports: None Endocrine Medical History: Reports: None Renal/ Medical History: Reports: None Malignancy Medical History: Reports: None GI Medical History: Reports: None Musculoskeltal Medical History: Reports: None Skin Medical History: Reports: None Psychiatric Medical History: Reports: Substance Abuse, Tobacco Dependency Traumatic Medical History: Reports: None Hematology: Reports: None Infectious Medical History: Reports: None Past Surgical History Past Surgical History: Reports: Section, Tonsillectomy Social History Information Source: Patient Smoking Status: Current Every Day Smoker Cigarettes Packs Per Day: 0.5 Frequency of Alcohol Use: None Hx Recreational Drug Use: Yes Drugs: Marijuana - Advance Directive Resuscitation Status: Full Code Family History Family History: Reviewed & Not Pertinent Parental Family History Reviewed: Yes Children Family History Reviewed: Yes Sibling(s) Family History Reviewed.: Yes Medication/Allergy Home Medications: Ondansetron [Zofran Odt 4 mg Tablet] 1 - 2 tab PO Q4H #30 tab.rapdis 07/29/16 Promethazine HCl [Phenergan 25 mg Tablet] 25 - 50 mg PO ASDIR PRN #30 tablet 07/29/16 Amoxicillin 875 mg PO BID #14 tablet 06/09/17 Famotidine [Pepcid 20 mg Tablet] 20 mg PO BID #14 tablet 12/26/18 Promethazine HCl [Phenergan 25 mg Tablet] 25 mg PO Q6H PRN #20 tablet 12/26/18 Sucralfate [Carafate 1 gm Tablet] 1 gm PO QID #20 tablet 12/26/18 Albuterol Sulfate [Ventolin 0.083% Neb 2.5 mg/3 mL Ampul] 1 vial NEB Q4 PRN #100 vial 04/13/19 Albuterol Sulfate [Ventolin 0.083% Neb 2.5 mg/3 mL Ampul] 1 vial NEB Q4 #30 vial 06/09/19 Azithromycin [Zithromax 250 mg Tablet] 250 mg PO ASDIR PRN #6 tablet 06/09/19 Doxycycline Hyclate 100 mg PO BID #14 capsule 06/09/19 Allergies/Adverse Reactions: morphine Allergy (Verified 04/13/19 11:51) Penicillins Allergy (Verified 04/13/19 11:51) Review of Systems Constitutional: PRESENT: chills, fatigue, fever(s), night sweats. ABSENT: headache(s), weight gain, weight loss Eyes: ABSENT: visual disturbances Ears: ABSENT: hearing changes Cardiovascular: ABSENT: chest pain, dyspnea on exertion, edema, orthropnea, palpitations Respiratory: ABSENT: cough, hemoptysis Gastrointestinal: PRESENT: nausea, other - flank pain. ABSENT: abdominal pain, constipation, diarrhea, hematemesis, hematochezia, vomiting Genitourinary: ABSENT: dysuria, hematuria Musculoskeletal: ABSENT: joint swelling Integumentary: ABSENT: rash, wounds Neurological: ABSENT: abnormal gait, abnormal speech, confusion, dizziness, focal weakness, syncope Psychiatric: ABSENT: anxiety, depression, homidical ideation, suicidal ideation Endocrine: ABSENT: cold intolerance, heat intolerance, polydipsia, polyuria Hematologic/Lymphatic: ABSENT: easy bleeding, easy bruising Physical Exam Vital Signs: Temp Pulse Resp BP Pulse Ox 99.8 F 102 H 23 H 131/84 H 96 06/09/19 07:54 06/09/19 07:54 06/09/19 09:00 06/09/19 07:54 06/09/19 09:00 Intake & Output 06/08/19 06/09/19 06/10/19 06:59 06:59 06:59 Intake Total 1000 Balance 1000 Weight 61.235 kg General appearance: PRESENT: no acute distress, disheveled, well-developed, well-nourished Head exam: PRESENT: atraumatic, normocephalic Eye exam: PRESENT: conjunctiva pink, EOMI, PERRLA. ABSENT: scleral icterus Ear exam: PRESENT: normal external ear exam Mouth exam: PRESENT: moist, tongue midline Teeth exam: PRESENT: poor dentation Neck exam: ABSENT: carotid bruit, JVD, lymphadenopathy, thyromegaly Respiratory exam: PRESENT: clear to auscultation michaela, symmetrical, unlabored. ABSENT: rales, rhonchi, wheezes Cardiovascular exam: PRESENT: RRR, +S1, +S2, tachycardia. ABSENT: diastolic murmur, rubs, systolic murmur Vascular exam: PRESENT: normal capillary refill GI/Abdominal exam: PRESENT: normal bowel sounds, soft. ABSENT: distended, guarding, mass, organolmegaly, rebound, tenderness Rectal exam: PRESENT: deferred Extremities exam: PRESENT: full ROM. ABSENT: calf tenderness, clubbing, pedal edema Neurological exam: PRESENT: alert, awake, oriented to person, oriented to place, oriented to time, oriented to situation, CN II-XII grossly intact. ABSENT: motor sensory deficit Psychiatric exam: PRESENT: anxious, appropriate affect, normal mood. ABSENT: homicidal ideation, suicidal ideation Skin exam: PRESENT: dry, intact, warm. ABSENT: cyanosis, rash Results Laboratory Results: 06/09/19 01:50 06/09/19 01:50 06/09/19 06/09/19 06/09/19 01:50 01:50 01:50 WBC 12.6 H RBC 3.84 Hgb 12.5 Hct 36.6 MCV 95 MCH 32.7 MCHC 34.3 RDW 12.9 Plt Count 349 Seg Neutrophils % 77.4 Sodium 140.7 Potassium 3.4 L Chloride 113 H Carbon Dioxide 20 L Anion Gap 8 BUN 10 Creatinine 0.64 Est GFR ( Amer) > 60 Glucose 94 Calcium 7.6 L Total Bilirubin 0.2 AST 17 Alkaline Phosphatase 85 Total Protein 6.1 L Albumin 3.0 L Lipase 708.5 H Serum HCG, Qual NEGATIVE Urine Color Urine Appearance Urine pH Ur Specific [place] Urine Protein Urine Glucose (UA) Urine Ketones Urine Blood Urine Nitrite Ur Leukocyte Esterase Urine WBC (Auto) Urine RBC (Auto) 06/09/19 01:50 WBC RBC Hgb Hct MCV MCH MCHC RDW Plt Count Seg Neutrophils % Sodium Potassium Chloride Carbon Dioxide Anion Gap BUN Creatinine Est GFR ( Amer) Glucose Calcium Total Bilirubin AST Alkaline Phosphatase Total Protein Albumin Lipase Serum HCG, Qual Urine Color YELLOW Urine Appearance SLIGHTLY-CLOUDY Urine pH 5.0 Ur Specific [place] 1.019 Urine Protein NEGATIVE Urine Glucose (UA) NEGATIVE Urine Ketones NEGATIVE Urine Blood NEGATIVE Urine Nitrite NEGATIVE Ur Leukocyte Esterase NEGATIVE Urine WBC (Auto) 0 Urine RBC (Auto) 1 Impressions: Abdomen/Pelvis CT 06/09/19 06:07 IMPRESSION: Multifocal rounded consolidations within the left lung with the largest one in the left lower lobe demonstrating central necrosis. This may be due to multifocal and necrotizing pneumonia or possibly metastatic disease. Recommend follow-up CT scan in three months to assess for stability. No acute findings within the abdomen or pelvis. TECHNICAL DOCUMENTATION: Quality ID # [id number]: Final reports with documentation of one or more dose reduction techniques (e.g., Automated exposure control, adjustment of the mA and/or kV according to patient size, use of iterative reconstruction technique) copyright 2011 [employer]- All Rights Reserved Assessment and Plan - Diagnosis (1) Multifocal pneumonia Is this a current diagnosis for this admission?: Yes Plan: WBCs 12.6, temperature 99.6, HR 102, RR 18, 92% on room air. CT abdomen pelvis demonstrated a multifocal rounded consolidation to the left lung possibly reflecting multifocal pneumonia versus metastatic disease. Recommend follow-up CT scan in 3 months. At this time, patient remains medically stable for discharge. I have discussed with the patient the importance of completing her course of antibiotic therapy and returning to the emergency department for any worsening or concerning symptoms. We discussed following up with Dr. Wheat after completion of antibiotics to determine if further evaluation for underlying malignancy is warranted. Advised the patient to discontinue smoking. Discussed recommendations for discharge to home with outpatient management with the ED providers. (2) Leukocytosis Is this a current diagnosis for this admission?: Yes Plan: Secondary to #1. Blood cultures were obtained by the ED. (3) Flank pain Is this a current diagnosis for this admission?: Yes Plan: Secondary to #1. Analgesics as recommended by the ED provider. (4) Tobacco dependence Is this a current diagnosis for this admission?: Yes Plan: Smoking cessation advised. - Time Time Spent with patient: 35 or more minutes Smoking Cessation Education: 3 to 10 minutes Anticipated discharge: Home
[2019-06-09 11:29] VITALS: BP 100/72
== END 2019-06-09 11:28 | disposition home or self-care (01) ==
LOC: ER 00:25
DX: J18.9 Pneumonia, unspecified organism (principal); R10.9 Unspecified abdominal pain; R11.2 Nausea with vomiting, unspecified; D72.829 Elevated white blood cell count, unspecified; Z79.899 Other long term (current) drug therapy; F17.200 Nicotine dependence, unspecified, uncomplicated; Z88.6 Allergy status to analgesic agent; Z88.5 Allergy status to narcotic agent; Z88.0 Allergy status to penicillin
CPT/HCPCS: 96376; 99285; 96361; 96375; 96365; 96367; 36415; 87040; 83690; 84703; 85025; 80053; 81001; 83605; 74177; J3010; J0696; J2405; J7030; J0456